=== PATIENT | female | born 1980 | race Hispanic/Latino ===

== ENCOUNTER 2018-03-02 14:40 | Outpatient (CLI) | payer OTHER ==
--- NOTE | 2018-03-02 17:18 | XRay Report ---
FINAL REPORT PROCEDURE: Lumbar spine. TECHNIQUE: Three views. HISTORY: Lower back pain. COMPARISON: No prior studies are available for comparison. FINDINGS: The lumbar vertebrae have normal height and alignment. There are no fractures. There is no spondylolisthesis. There is mild disc space narrowing at L5-S1. The sacrum and sacroiliac joints appear normal. IMPRESSION: Mild degenerative disc disease at L5-S1.
== END 2018-03-02 14:41 | disposition home or self-care (01) ==
LOC: SPVIMAG 14:40
PROVIDERS: ATTEND Family Medicine
DX: M51.37 Other intervertebral disc degeneration, lumbosacral region (principal)
CPT/HCPCS: 72100

== ENCOUNTER 2018-03-29 11:25 | Outpatient (CLI) | payer OTHER ==
--- NOTE | 2018-03-29 12:08 | XRay Report ---
XRAY CHEST TWO VIEWS: 03/29/18 11:25:00 CLINICAL: Cough. COMPARISON: 12/10/11 FINDINGS: Normal heart and pulmonary vasculature. The lungs are normally expanded and clear.The bones and soft tissues are unremarkable. IMPRESSION: Normal chest.
== END 2018-03-29 11:26 | disposition home or self-care (01) ==
LOC: SPVIMAG 11:25
PROVIDERS: ATTEND Family Medicine
DX: R05 Cough (principal)
CPT/HCPCS: 71046